=== PATIENT | male | born 1985 | race Two or more races ===

== ENCOUNTER 2022-01-25 03:56 | Emergency (ER) | payer OTHER ==
[~2022-01-25] VITALS: Ht 177.8 cm; Wt 72.6 kg
[2022-01-25 03:56] VITALS: BP 110/69
== END 2022-01-25 09:21 | disposition home or self-care (01) ==
LOC: ER 03:56
DX: S16.1XXA Strain of muscle, fascia and tendon at neck level, initial encounter (principal); S39.012A Strain of muscle, fascia and tendon of lower back, initial encounter; V43.52XA Car driver injured in collision with other type car in traffic accident, initial encounter; Y93.89 Activity, other specified; Y92.410 Unspecified street and highway as the place of occurrence of the external cause; Y99.8 Other external cause status
CPT/HCPCS: 72125